=== PATIENT | female | born 1995 ===

== ENCOUNTER → 2018-10-11 11:37 | Day surgery (SDC) | payer OTHER ==
[~2018-10-11 11:37] MED LIST: Buffered Lidocaine 1% SYRIN* 1 ML/SYRINGE INTRADERM ONE; Bupivacaine 0.25% SDV* 30 ML ONE; DiMENhydriNATE IV* 50 MG/ML VIAL IV PUSH PRN; Famotidine IV* 10 MG/ML 2 ML (20 mg) IV SLOW PU ONE; Famotidine IV* 10 MG/ML 2 ML (20 mg) ONE; HYDROcodone/ACETAMIN 5-325 MG* 1 TAB PO PRN; HYDROmorphone INJ1* 1 MG/ML SYRINGE IV PRN; Ketorolac INJ* 30 MG/ML 1 ML VIAL ONE; Lactated Ringers 1000 ML Bag* 1,000 ML IV SCH; Lidocaine 2% PF * 5 ML VIAL ONE; Midazolam* 1 MG/ML 5 ML VIAL (5 MG) ONE; Naloxone* 0.4 MG/ML 1 ML VIAL IV PRN; Ondansetron INJ* 2 MG/ML VIAL ONE; Propofol* 10 MG/ML 20 ML BTL ONE; ceFAZolin 2 GM in NS PREMIX(*) 2 GM/100 ML BAG IVPB ONE; fentaNYL* 50 MCG/ML 2 ML VIAL (100 MCG VIAL) ONE
[2018-10-11 13:32] VITALS: BP 95/60
--- NOTE | 2018-10-11 14:00 | OP ---
OPERATIVE REPORT: DATE OF OPERATION: 10/11/18 - TED DATE OF : 89 SURGEON: Srinivas Dias MD LINE DANCER: MAE Mcclendon ANESTHESIOLOGIST: Dr. Martins. ANESTHESIA: Local MAC. PRE-OP DIAGNOSIS: Right thumb displaced metacarpal base fracture. POST-OP DIAGNOSIS: Right thumb displaced metacarpal base fracture. OPERATIVE PROCEDURE: Open reduction and percutaneous fixation of right thumb metacarpal base fracture. INDICATIONS: Conchis had the fractured thumb not quite 2 weeks old. We talked about risks and benefits, she had wanted to proceed with surgery as it was displaced and angulated. ESTIMATED BLOOD LOSS: 2 mL. COMPLICATIONS: None. FINDINGS: See above and below. DESCRIPTION OF PROCEDURE: Ms. Grullon was seen in the preoperative holding area. The correct site, side, and procedure were identified. We came back to the operating room, the arm was prepped and draped in the usual fashion and a time-out was performed. I then anesthetized the operative site with 0.25% plain Marcaine. The arm was washed and prepped and draped. I first brought in the mini C-arm and attempted to get it close reduce that, I just could not get it quite all the way and so I made a 7 or 8 mm incision near the glabrous junction over the fracture. I spread it down with the tenotomy scissors. I placed a [place] elevator into the fracture site. I used that as a slide to slide the distal aspect of the metacarpal back up into the reduced position. I then placed two 0.62 K-wires from distal radial exiting out to the proximal ulnar. I then placed one from distal ulna exiting out proximal radial. These held the fracture very nicely. The alignment was very good. The wound was washed and closed with 4-0 nylon suture. Pins were bent and clipped and then dressed with Xeroform, 4 x 4s, sterile Webril, and a thumb spica splint out to the level of the IP joint was applied. She was taken to the recovery room in stable condition. [id number]/[id number] #: [id number] MTDD
== END | disposition home or self-care (01) ==
LOC: OREAST 11:37
PROVIDERS: ATTEND Orthopaedic Surgery Hand Surgery
DX: S62.231A Other displaced fracture of base of first metacarpal bone, right hand, initial encounter for closed fracture (principal); W19.XXXA Unspecified fall, initial encounter; Y92.9 Unspecified place or not applicable
CPT/HCPCS: 76000; 81025; C1776; J0690; J1885; J2250; J2405; J2704; J3010; J3490